=== PATIENT | male | born 1945 | race Caucasian/White ===

== ENCOUNTER 2020-08-17 11:30 | Outpatient (RCR) | payer OTHER, SELFPAY ==
--- NOTE | 2020-06-02 14:06 | ST.OPIE ---
Visit Care Team Role Provider Type Adrianne Atwood MD Attending Provider Non-Staff Primary Care Provider Referring Provider Specialty: Medical Address: [address] [place] [address], [phone] Email: Speech-Language Pathology Initial Evaluation PUNCHER AND FASTENER Motor Speech Evaluation Start: 06/02/20 11:27 Freq: Status: Active Protocol: Document 06/02/20 12:36 LNK (Rec: 06/02/20 13:32 LNK [email or web address]) Motor Speech Evaluation Session Time Visit Start Time 11:30 Visit Stop Time 12:30 Total Visit Minutes 60 Visit Information Visit Number 1 Plan of Care Dates 06/02/20-08/31/20 Setting Setting Outpatient Care Next Note Type Next Note Type Treatment Note Patient History Source: [employer] [facility]). 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 According to records provided by the pt, he received TPA at [facility] and was transferred to [facility] for a period of 3 days. At discharge from [facility], he was reported to have a normal exam and was referred for outpatient ST. Pt complained of mild word finding difficulty and stuttering. He stated that both began following his stroke. When asked, the pt indicated that the stuttering impacted his communication more than the word finding. He wants to target the stuttering in therapy. Referral Referring Physician Dr. Adrianne Sherman Reason for Referral word finding/stuttering Mental Status Mental Status Alert,Responsive Subjective Observations Subjective Pt arrived on time with [facility] discharge records. Oral Motor Lips Function WFL Tongue Function WFL Jaw Function WFL Soft Palate Function WFL Respiration/Phonation Phonation Quality WNL Oral Reading Quality WFL Other pt reports no stuttering when reading aloud or singing Function WFL Loudness WFL Conversation Stimulus Informal conversation Quality WNL Function Mildly Impaired Steadiness speaking pattern with repetitions of sounds and words; stop/start kay Diadochokinetic Rates P^ Quality WFL T^ Quality WFL K^ Quality WFL P^T^K^ Quality WFL Comments rhythmic pattern = no stuttering Speech Intelligibility Standardized Tests Assessment Name(s) Speech 100% intelligible during conversation; No s/sx dysarthria Phoneme Severity Mildly Impaired Comments part word repetitions Word Severity Mildly Impaired Comments whole word repetitions Sentence Severity Mildly Impaired Comments sentences do not flow smoothly /fluently. Repetitions, stop/ start flow Conversation Severity Mildly Impaired Awareness/Strategy Use Description Type of awareness/use Uses intermittently Findings Details Motor Speech Function Mild Impairment Type of Impairment acquired fluency disorder/ stuttering Assessment Details Assessment Jass Alfonso presented with acquired stuttering with mild word finding difficulty. He reports much improvement in both areas since his discharge from [facility] two weeks ago. Jass's speech pattern is characterized by part word and whole word repetitions along with a kay pattern of frequent stops/starts. Jass stated that he feels the word finding influences his kay and his stuttering as well as the reverse; his stuttering influences his word finding. He described his communication as requiring a lot of concentration and effort to be fluent. He further reported that his speech is very frustrating. Prognosis Rehabilitation Potential Excellent Recommendations Treatment Recommended Yes Frequency 1x every 2-3 weeks Duration 2-3 months Therapy Recommendations speech therapy Short Term Goals Pt will be able to produce tongue twisters with <10% errors in a clinical setting. Pt will report improved speech fluency in structured conversation at home. Pt will report improved word finding ability as measured by frequency of occurrence in structured conversation. Correction Goals Improved speech fluency and word finding skills as reported by pt and his . Patient/Family Education Education Described results of evaluation,Patient Understanding
--- NOTE | 2020-06-02 14:06 | ST.OPPOC ---
Physical, Occupational & Speech Therapy At Visit Care Team Role Provider Type Adrianne Atwood MD Attending Provider Non-Staff Primary Care Provider Referring Provider Address: [address] [place] [address], [phone] Speech Pathology Plan of Care Plan of Care Dates 06/02/20-08/31/20 Short Term Goals Pt will be able to produce tongue twisters with <10% errors in a clinical setting. Pt will report improved speech fluency in structured conversation at home. Pt will report improved word finding ability as measured by frequency of occurrence in structured conversation. Automatic Steel Tie Adjuster Goals Improved speech fluency and word finding skills as reported by pt and his . Electronically Signed by: BELINDA Chang 06/02/20 3310 Please Sign and Return: I have reviewed this Plan of Care and certify that the skilled therapy services above are required to meet the patient?s needs. Physician Signature Date Printed Name and Credentials Clinical Instructor Signature Printed Name and Credentials
--- NOTE | 2020-06-23 17:33 | ST.OPTN ---
Visit Care Team Role Provider Type Adrianne Atwood MD Attending Provider Non-Staff Primary Care Provider Referring Provider Address: [address] [place] [address], [phone] CARRY ALL DRIVER Treatment Note CARRY ALL DRIVER Treatment Note Start: 06/02/20 11:27 Freq: Status: Active Protocol: Document 06/23/20 13:42 LNK (Rec: 06/23/20 17:32 LNK [email or web address]) Speech Pathology Treatment Note Session Time Visit Start Time 13:30 Visit Stop Time 14:30 Total Visit Minutes 60 Setting Treatment Setting Outpatient Care Visit Type Note Type Treatment Note Next Note Type Next Note Type Treatment Note General Information General Information Pt is a 74 year old male referred secondary to 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 According to records provided by the pt, he received TPA at [facility] and was transferred to [facility] for a period of 3 days. At discharge from [facility], he was reported to have a normal exam and was referred for outpatient ST. Pt complained of mild word finding difficulty and stuttering. He stated that both began following his stroke. When asked, the pt indicated that the stuttering impacted his communication more than the word finding. He wants to target the stuttering in therapy. [ Subjective Identification Type Name,Picture Identification Reconciled With Intake Sheet Chief Complaint(s) Speech Additional Areas of Concern Word finding difficulty Patient Knowledge/Awareness of CARRY ALL DRIVER Role Excellent in Treatment Patient/Caregiver Compliance with Home Excellent Exercise Program Objective Short Term Goals Pt will be able to produce tongue twisters with <10% errors in a clinical setting. Pt will report improved speech fluency in structured conversation at home. Pt will report improved word finding ability as measured by frequency of occurrance in structured conversation. Vector Control Assistant Goals Improved speech fluency and word finding skills as reported by pt and his . Treatment Activities Pt reported that he has notices a big improvement of his speech fluency with the tongue twisters. he continues to have difficulty with word finding, which is becoming frustrating for him. Completed the Standard Form of the Novelty Naming Test. Pt demonstrated difficulty with 7 /60 words. He used verbal paraphasias for 6/7 words. Discussed strategies for improving word finding abilities at home (i.e., description, gestures, functions, etc.). Pt was encouraged to continue his treatment HEP at home. Will f/ u in 3-4 weeks. Assessment Patient Response to Treatment Excellent Rehab Potential Excellent Impairments Identified Aphasia Progress Towards Goals Excellent Progress Assessment of Overall Progress Improving Reviewed with Patient Goals,Progress Being Made,Home Exercise Program Patient/Caregiver Understanding Excellent Plan Amount of Therapy Recommended 2-3 Months Comment 1x every 3-4 weeks Length of Session 60 Minutes Therapeutic Contents Expressive Language Training, Intelligibility Provided Patient/Caregiver Instruction Home Exercise Program,Plan of Care,Questions/Concerns Therapy Recommendations Continue with Current Program
--- NOTE | 2020-07-21 14:34 | ST.OPTN ---
Visit Care Team Role Provider Type Adrianne Atwood MD Attending Provider Non-Staff Primary Care Provider Referring Provider Address: [address] [place] [address], [phone] STEREOTYPE MOLDER Treatment Note STEREOTYPE MOLDER Treatment Note Start: 06/02/20 11:27 Freq: Status: Active Protocol: Document 07/21/20 13:28 LNK (Rec: 07/21/20 14:34 LNK [email or web address]) Speech Pathology Treatment Note Session Time Visit Start Time 13:30 Visit Stop Time 14:30 Total Visit Minutes 60 Visit Information Visit Number 3 Plan of Care Dates 06/02/20-08/31/20 Setting Treatment Setting Outpatient Care Visit Type Note Type Treatment Note Next Note Type Next Note Type Treatment Note General Information General Information Pt is a 74 year old male referred secondary to 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 According to records provided by the pt, he received TPA at [facility] and was transferred to [facility] for a period of 3 days. At discharge from [facility], he was reported to have a normal exam and was referred for outpatient ST. Pt complained of mild word finding difficulty and stuttering. He stated that both began following his stroke. When asked, the pt indicated that the stuttering impacted his communication more than the word finding. He wants to target the stuttering in therapy. [ Subjective Identification Type Name,Picture Identification Reconciled With Intake Sheet Chief Complaint(s) Speech Additional Areas of Concern Word finding difficulty Patient Knowledge/Awareness of STEREOTYPE MOLDER Role Excellent in Treatment Patient/Caregiver Compliance with Home Excellent Exercise Program Objective Short Term Goals Pt will be able to produce tongue twisters with <10% errors in a clinical setting. Pt will report improved speech fluency in structured conversation at home. Pt will report improved word finding ability as measured by frequency of occurrence in structured conversation. Penitentiary Goals Improved speech fluency and word finding skills as reported by pt and his . Treatment Activities Pt reports continues improvement. Fluency has improved to WFL. Pt continues to find it troublesome. Provided lists of multisyllabic words requiring a diadochokinetic- like exercise. Word-finding ability is also improved per pt report. Assessment Patient Response to Treatment Excellent Rehab Potential Excellent Impairments Identified Aphasia Progress Towards Goals Excellent Progress Assessment of Overall Progress Improving Reviewed with Patient Goals,Progress Being Made,Home Exercise Program Patient/Caregiver Understanding Excellent Plan Amount of Therapy Recommended 2-3 Months Comment 1x every 3-4 weeks Length of Session 60 Minutes Therapeutic Contents Expressive Language Training, Intelligibility Provided Patient/Caregiver Instruction Home Exercise Program,Plan of Care,Questions/Concerns Therapy Recommendations Continue with Current Program
--- NOTE | 2020-08-17 12:33 | ST.OPTN ---
Visit Care Team Role Provider Type Adrianne Atwood MD Attending Provider Non-Staff Primary Care Provider Referring Provider Address: [address] [place] [address], [phone] JOINERY MACHINIST Treatment Note JOINERY MACHINIST Treatment Note Start: 06/02/20 11:27 Freq: Status: Active Protocol: Document 08/17/20 11:15 LNK (Rec: 08/17/20 11:18 LNK [email or web address]) Speech Pathology Treatment Note Session Time Visit Start Time 11:30 Visit Stop Time 12:30 Total Visit Minutes 60 Visit Information Visit Number 4 Plan of Care Dates 06/02/20-08/31/20 Setting Treatment Setting Outpatient Care Visit Type Note Type Treatment Note Next Note Type Next Note Type Discharge Summary General Information General Information Pt is a 74 year old male referred secondary to 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 According to records provided by the pt, he received TPA at [facility] and was transferred to [facility] for a period of 3 days. At discharge from [facility], he was reported to have a normal exam and was referred for outpatient ST. Pt complained of mild word finding difficulty and stuttering. He stated that both began following his stroke. When asked, the pt indicated that the stuttering impacted his communication more than the word finding. He wants to target the stuttering in therapy. [ Subjective Identification Type Name,Picture Identification Reconciled With Intake Sheet Chief Complaint(s) Speech Additional Areas of Concern Word finding difficulty Patient Knowledge/Awareness of JOINERY MACHINIST Role Excellent in Treatment Patient/Caregiver Compliance with Home Excellent Exercise Program Objective Short Term Goals Pt will be able to produce tongue twisters with <10% errors in a clinical setting. Pt will report improved speech fluency in structured conversation at home. Pt will report improved word finding ability as measured by frequency of occurrence in structured conversation. Long-Term Goals Improved speech fluency and word finding skills as reported by pt and his . Treatment Activities Pt reports continues improvement. Fluency has improved to WFL. Pt continues to work with HEP as often as he can. his word finding has improved significantly. He is able to participate in conversations with people including friends, family and others with minimal to no difficulty. Pt feels he is able to continue his exercises on his own. He is very appreciative of his progress. Will discharge from ST services at this time. Assessment Patient Response to Treatment Excellent Rehab Potential Excellent Impairments Identified Aphasia Progress Towards Goals Excellent Progress Assessment of Overall Progress Improving Reviewed with Patient Goals,Progress Being Made,Home Exercise Program Patient/Caregiver Understanding Excellent Plan Amount of Therapy Recommended 2-3 Months Comment 1x every 3-4 weeks Length of Session 60 Minutes Therapeutic Contents Expressive Language Training, Intelligibility Provided Patient/Caregiver Instruction Home Exercise Program,Plan of Care,Questions/Concerns Therapy Recommendations Continue with Current Program
--- NOTE | 2020-08-17 12:41 | ST.OPDS ---
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 According to records provided by the pt, he received TPA at [facility] and was transferred to [facility] for a period of 3 days. At discharge from [facility], he was reported to have a normal exam and was referred for outpatient ST. Pt complained of mild word finding difficulty and stuttering. He stated that both began following his stroke. When asked, the pt indicated that the stuttering impacted his communication more than the word finding. He wants to target the stuttering in therapy. [ Subjective Chief Complaint(s) Speech Additional Areas of Concern Word finding difficulty Patient/Caregiver Compliance with Home Excellent Exercise Program Objective Short Term Goals ALL GOALS MET Research Clerk Goals Improved speech fluency and word finding skills as reported by pt and his . Treatment Activities Pt reports continues improvement. Fluency has improved to WFL. Pt continues to work with HEP as often as he can. his word finding has improved significantly. He is able to participate in conversations with people including friends, family and others with minimal to no difficulty. Pt feels he is able to continue his exercises on his own. He is very appreciative of his progress. Will discharge from ST services at this time. Assessment Patient Response to Treatment Excellent Progress Towards Goals Excellent Progress Reviewed with Patient Progress Being Made,Home Exercise Program Patient/Caregiver Understanding Excellent Plan Amount of Therapy Recommended No Further Therapy Frequency of Treatment No Further Therapy Provided Patient/Caregiver Instruction Home Exercise Program Therapy Recommendations Discharge from Speech Therapy Reason for Discharge Goals met
== END 2020-08-19 14:41 | disposition home or self-care (01) ==
LOC: SP 11:30
PROVIDERS: PCP Internal Medicine; Referring Provider Internal Medicine; Visit Provider Internal Medicine
DX: I69.320 Aphasia following cerebral infarction (principal)
CPT/HCPCS: 92507; 92522

== ENCOUNTER 2020-10-01 14:16 | Outpatient (RCR) | payer OTHER, SELFPAY ==
--- NOTE | 2020-10-05 13:17 | ST.OPIE ---
Visit Care Team Role Provider Type Adrianne Atwood MD Attending Provider Non-Staff Primary Care Provider Referring Provider Specialty: Medical Address: [address] [place] [address], [phone] Email: Speech-Language Pathology Initial Evaluation IMMIGRATION INSPECTOR Adult Cognitive Linguistic Eval Start: 10/01/20 15:59 Freq: Status: Active Protocol: Document 10/01/20 16:01 (Rec: 10/01/20 16:34 [id number]) Adult Cognitive Linguistic Evaluation Session Time Visit Start Time 14:30 Visit Stop Time 15:30 Total Visit Minutes 60 Visit Information Visit Number 1 Plan of Care Dates 10/01/20-01/01/21 Insurance Information [employer] Advantage Referral Referring Provider Adrianne Atwood Setting Assessment Location Outpatient Care Visit Type Note Type Initial evaluation Next Note Type Next Note Type Treatment Note Patient Information Identification Type Name Medical History Jass Burden, is a 74-year- old male who was seen and discharged previously from speech therapy. He is seeking additional therapy for further word-finding deficits during conversation. Per his medical record, pt was previously referred for speech therapy due to communication deficits secondary to a left posterior frontal infarct on 05/18/20. According to records provided by the pt, he received TPA at [facility] and was transferred to [facility] for a period of 3 days. At discharge from [facility], he was reported to have a normal exam and was referred for outpatient ST. Pt complained of mild word finding difficulty and stuttering. He stated that both began following his stroke. When asked, the pt indicated that the stuttering impacted his communication more than the word finding. He wants to target the stuttering in therapy. He was discharged on 08/17/20 after meeting goals for fluency and word-finding. He stated he was very pleased with his progress. Previous Therapy Previous Speech-Language Therapy Jass attended four outpatient speech therapy sessions from to 08/17/20. History of Therapy Previous goals were all met. Goals were as follows: Short Term Goals 1) Pt will be able to produce tongue twisters with <10% errors in a clinical setting. 2) Pt will report improved speech fluency in structured conversation at home. 3) Pt will report improved word finding ability as measured by frequency of occurrence in structured conversation. Senior Living Goal Improved speech fluency and word finding skills as reported by pt and his . Subjective Patient Report Today, pt reports great frustration when he stumbles over words to initiate a sentence and explain himself accurately during conversation . He reports beginning a sentence with the wrong word on multiple occasions, particularly when explaining his stance, opinion, or how to do something. His is very patient with him and gives him time to come up with the correct words. His friends and acquaintances have also been very understanding, however, this inability to start a sentence with the correct word is very frustrating for him. Assessment Oral Motor Examination Completed No Results Informal observation indicates all structures and functioning are WNL. Informal Assessment Receptive Language Normal Yes Expressive Language Normal No Expressive Language Impairment(s) Expression of complex thoughts /ideas Pragmatic Language Normal Yes Speech Normal Yes Cognition Normal No: Pt reports occasional gaps in LTM. Cognitive Impairment(s) Long-term memory,Thought organization Findings/Results Language Function Mildly impaired Cognitive Function Within functional limits Findings As Jass was previously seen for a cognitive-linguistic evaluation and therapy, no formal assessments were administered during this session. The following areas were noted from patient report and clinician observation: Pt has difficulty initiating sentences in a timely manner, particularly on topics requiring complex thought and reasoning. Pt frequently begins sentences with the wrong pronoun (i.e., it vs. this) and verb forms ( i.e., is vs. am). Pt has occasional gaps in his long-term memory. These communication factors significantly impact his ability to express meaningful thoughts and opinions during a variety of communicative interactions, including those with communication pressure ( such as emergency situations). Jass may benefit from additional speech-language therapy centered around complex thought organization and expression, as well as self-advocacy strategies. Cognitive Communication Deficits Self-awareness of Cognitive- Predictive awareness (able to Communication Deficits predict problem; impact of impairments) Impact on Functioning Activity Limits/Particip.Rest. Mod: Interpersonal Interactions Community Safety Risks Mild: Reacting to Emergency Prognosis Prognosis Fair Based on Cognitive status,Family support,Time since onset Plan of Care Speech-Language Treatment Yes Frequency Once weekly Duration 3 months Patient/Caregiver Education Patient expressed understanding of evaluation, Patient requires further education/training Short Term Goals Pt will report completion of home practice to enhance fluent and accurate communication of complex ideas . Pt will demonstrate understanding of his current linguistic status and fpc prognosis. Senior Living Goals Pt will report decreased frustration with his ability to express complex thoughts and initiate sentences accurately. IMMIGRATION INSPECTOR Clinical Instructor Line Start: 10/01/20 15:59 Freq: Status: Active Protocol: Document 10/05/20 13:07 MIRTHA (Rec: 10/05/20 13:07 [email or web address] [email or web address]) Clinical Instructor Signature Clinical Instructor Clinical Instructor Yes
--- NOTE | 2020-12-06 12:21 | ST.OPDS ---
Visit Care Team Role Provider Type Adrianne Atwood MD Attending Provider Non-Staff Primary Care Provider Referring Provider Address: [address] [place] [address], [phone] SYBASE DEVELOPER Treatment Note SYBASE DEVELOPER Clinical Instructor Line Start: 10/01/20 15:59 Freq: Status: Active Protocol: Document 10/05/20 13:07 LNK (Rec: 10/05/20 13:07 LNK [id number]) Clinical Instructor Signature Clinical Instructor Clinical Instructor Yes SYBASE DEVELOPER Treatment Note Start: 12/06/20 12:13 Freq: Status: Active Protocol: Document 12/06/20 12:14 LNK (Rec: 12/06/20 12:21 LNK [id number]) Speech Pathology Treatment Note Visit Type Note Type Discharge Summary General Information General Information Jass Burden, is a 74-year- old male who was seen and discharged previously from speech therapy. He is seeking additional therapy for further word-finding deficits during conversation. 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 According to records provided by the pt, he received TPA at [facility] and was transferred to [facility] for a period of 3 days. At discharge from [facility], he was reported to have a normal exam and was referred for outpatient ST. Pt complained of mild word finding difficulty and stuttering. He stated that both began following his stroke. When asked, the pt indicated that the stuttering impacted his communication more than the word finding. He wants to target the stuttering in therapy. He was discharged on 08/17/20 after meeting goals for fluency and word-finding. He stated he was very pleased with his progress. Subjective Chief Complaint(s) Language,Cognitive Patient Knowledge/Awareness of SYBASE DEVELOPER Role Excellent in Treatment Assessment Progress Towards Goals Appropriate for Discharge Assessment of Improvement Pt was seen for the evaluation only. Pt then cancelled scheduled follow up appts. Will discharge Plan Amount of Therapy Recommended No Further Therapy Frequency of Treatment No Further Therapy
== END 2020-12-06 14:22 | disposition home or self-care (01) ==
LOC: SP 14:16
PROVIDERS: PCP Internal Medicine; Referring Provider Internal Medicine; Visit Provider Internal Medicine
DX: R47.01 Aphasia (principal)
CPT/HCPCS: 92523

== ENCOUNTER → 2022-01-23 14:15 | Outpatient (ROUT) | payer OTHER, SELFPAY ==
[2022-01-23 14:26] LABS: Add Manual Diff / Slide Review NO; Basophils Absolute Auto 100 /uL (0-100); Basophils Percent Auto 0.7 % (0-2); Eosinophils Absolute Auto 200 /uL (0-450); Eosinophils Percent Auto 2.8 % (2-4); Hematocrit 37.4 % (41-53); Hemoglobin 12.6 g/dL (13.5-17.5); Lymphocytes Absolute Auto 1100 /uL (1100-4500); Lymphocytes Percent Auto 14.6 % (25-40); Mean Corpuscular HGB Conc 33.6 % (30-36); Mean Corpuscular Hemoglobin 30.1 PG (26-34); Mean Corpuscular Volume 89.6 fL (80-100); Monocytes Absolute Auto 700 /uL (0-900); Monocytes Percent Auto 9.5 % (3-14); Neutrophils Absolute Auto 5200 /uL (1500-7000); Neutrophils Percent Auto 72.4 % (50-75); Platelet Count 312 X10^3/uL (150-400); Red Blood Cell Count 4.17 X10^6/uL (4.5-5.9); White Blood Cell Count 7.2 X10^3/uL (4.5-11.0)
[2022-01-23 14:40] LABS: Alanine Aminotransferase 19 IU/L (<50); Albumin 3.5 g/dL (3.5-5.0); Albumin Globulin Ratio 1.3 (1.0-2.8); Alkaline Phosphatase 128 U/L (38-126); Aspartate Aminotransferase 33 IU/L (17-59); BUN Creatinine Ratio 22.8 (6-22); Bilirubin Total 0.5 mg/dL (0.2-1.3); Blood Urea Nitrogen 23 mg/dL (9-20); C-Reactive Protein Quant 0.7 mg/dL (<1.0); Calcium 9.1 mg/dL (8.4-10.2); Carbon Dioxide 23 mmol/L (22-32); Chloride 106 mmol/L (98-107); Estimated Glomerular Filt Rate > 60 mL/min (>60); Globulin 2.6 g/dL (1.7-4.1); Glucose 105 mg/dL (80-110); HEMOLYSIS < 15 (0-50); Potassium 4.6 mmol/L (3.4-5.1); Sodium 140 mmol/L (137-145); Total Protein 6.1 g/dL (6.3-8.2)
== END ==
PROVIDERS: PCP Internal Medicine; Visit Provider Internal Medicine Infectious Disease
DX: T82.7XXA Infection and inflammatory reaction due to other cardiac and vascular devices, implants and grafts, initial encounter (principal)
CPT/HCPCS: 80053; 85025; 86140